=== PATIENT | male | born 1985 | race Caucasian/White ===

== ENCOUNTER 2017-06-05 12:02 | Inpatient (IN) | payer SELFPAY ==
[2017-06-05 12:54] VITALS: BMI 18.8
[2017-06-05] MEDS ORDERED: MENTHOL/PHENOL 1 EACH UD MM PRN (17:24)
[2017-06-05] MEDS ORDERED: hydrOXYzine PAMOATE 50 MG CAPSULE (FP) PO PRN (17:24)
[2017-06-05] MEDS ORDERED: LOPERAMIDE HCL 2 MG CAPSULE PO PRN (17:24)
[2017-06-05] MEDS ORDERED: diazePAM 5 MG TABLET PO PRN (17:24)
[2017-06-05] MEDS ORDERED: P-EPHED 60MG/TRIPROLIDI 2.5MG TABLET PO PRN (17:24)
[2017-06-05] MEDS ORDERED: NICOTINE POLACRILEX 4 MG GUM BC PRN (17:24)
[2017-06-05] MEDS ORDERED: MAGNESIUM HYDROX 2400MG/30ML ORAL SUSPENSION 30 ML CUP PO PRN (17:24)
[2017-06-05] MEDS ORDERED: MAG HYDROX/AL HYDROX/SIMETH 30 ML UNIT-DOSE CUP PO PRN (17:24)
[2017-06-05] MEDS ORDERED: ACETAMINOPHEN 325 MG TABLET (FP) PO PRN (17:24)
[2017-06-05] MEDS ORDERED: guaiFENesin/D-METHORPHAN HB 10 ML UNIT-DOSE CUPS PO PRN (17:24)
[2017-06-05] MEDS ORDERED: MAGNESIUM CITRATE 300 ML BOTTLE PO PRN (17:24)
[2017-06-05] MEDS ORDERED: IBUPROFEN 400 MG TABLET (FP) PO PRN (17:24)
--- NOTE | 2017-06-05 17:36 | HP ---
COWS - Scale Resting Pulse: 1= [place] 81-100 Sweatin= Chills/Flushing Restless Observation: 3= Extraneous Movement Pupil Size: 0= Normal to Room Light Bone or Joint Aches: 4=Acute Joint/Muscle Pain Runny Nose/ Eye Tearin= Nasal Congestion GI Upset > 30mins: 1= Stomach Cramp Tremor Observation: 1= Tremor [place], Not Seen Yawning Observation: 1= 1-2x During Session Anxiety or Irritability: 1=Feels Anxious/Irritable Goose Flesh Skin: 0=Smooth Skin COWS Score: 14 CIWA Score - CIWA Score Nausea/Vomitin-No Nausea/No Vomiting Muscle Tremors: 3 Anxiety: 4-Mod. Anxious/Guarded Agitation: 3 Paroxysmal Sweats: No Perspiration Orientation: 0-Oriented Tacttile Disturbances: 3-Moderate Itch/Numb/Burn Auditory Disturbances: 0-None Visual Disturbances: 0-None Headache: 0-None Present CIWA-Ar Total Score: 13 Admission ROS S - HPI Chief Complaint: WITHDRAWAL SX FROM HEROIN AND XANAX Allergies/Adverse Reactions: Allergies Allergy/AdvReac Type Severity Reaction Status Date / Time No Known Allergies Allergy Verified 06/05/17 14:12 History of Present Illness: 31 Y/O MALE WITH A HX OF HEROIN AND XANAX DEPENDENCE SEEKING DETOX [place]. Exam Limitations: No Limitations - Ebola screening Have you traveled outside of the country in the last 21 days: No Have you had contact with anyone from an Ebola affected area: No Have you been sick,other than usual withdrawal symptoms: No Do you have a fever: No - Review of Systems Constitutional: Chills, Loss of Appetite, Night Sweats, Changes in sleep, Unintentional Wgt. Loss EENT: reports: Blurred Vision (WEARS GLASSES), Tearing, Nose Congestion, Dental Problems (CROWNS PUT IN ON FRONTAL TEETH) Respiratory: reports: No Symptoms reported Cardiac: reports: No Symptoms Reported GI: reports: Poor Appetite, Poor Fluid Intake : reports: No Symptoms Reported Musculoskeletal: reports: Back Pain, Joint Pain, Muscle Pain Integumentary: reports: Bruising (IVD INJECTION SITES) Neuro: reports: Other (BLACKOUTS DUE TO XANAX USE) Endocrine: reports: No Symptoms Reported Hematology: reports: No Symptoms Reported Psychiatric: reports: Orientated x3 Other Systems: Reviewed and Negative Patient History - Patient Medical History Hx Anemia: No Hx Asthma: No Hx Chronic Obstructive Pulmonary Disease (COPD): No Hx Cancer: No Hx Cardiac Disorders: No Hx Congestive Heart Failure: No Hx Hypertension: No Hx Hypercholesterolemia: No Hx Pacemaker: No HX Cerebrovascular Accident: No Hx Seizures: No Hx Dementia: No Hx Diabetes: No Hx Gastrointestinal Disorders: No Hx Liver Disease: No Hx Genitourinary Disorders: No Hx Sexually Transmitted Disorders: No Hx Renal Disease (ESRD): No Hx Thyroid Disease: No Hx Human Immunodeficiency Virus (HIV): No (NEGATIVE HX;LAST 06/09) Hx Hepatitis C: No Hx Depression: No Hx Suicide Attempt: No (DENIES PAST/ CURRENT S/H/I TODAY) Hx Bipolar Disorder: No Hx Schizophrenia: No - Patient Surgical History Past Surgical History: Yes Hx Neurologic Surgery: No Hx Cataract Extraction: No Hx Cardiac Surgery: No Hx Lung Surgery: No Hx Breast Surgery: No Hx Breast Biopsy: No Hx Abdominal Surgery: Yes (CONGENITAL RIGHT HERNIA-SX AT ) Hx Appendectomy: No Hx Cholecystectomy: No Hx Genitourinary Surgery: No Hx Section: No Hx Orthopedic Surgery: No Anesthesia Reaction: No - PPD History Previous Implant?: Yes Documented Results: Negative w/proof Implanted On Prior R Admission?: Yes Date: 10/29/15 - Reproductive History Patient is a Female of Child Bearing Age (11 -55 yrs old): No (MALE) - Smoking Cessation Smoking history: Current every day smoker Have you smoked in the past 12 months: Yes Aproximately how many cigarettes per day: 20 Hx Chewing Tobacco Use: No Initiated information on smoking cessation: Yes 'Breaking Loose' booklet given: 06/05/17 - Substance & Tx. History Hx Alcohol Use: No (DENIES) Hx Substance Use: Yes (HEROIN/XANAX) Substance Use Type: Cocaine, Heroin, Tranquilizers (8 MG TWICE WEEKLY, LAST USED 06/04/17 AND STATES IT'S A PROBLEM FOR HIM.) Hx Substance Use Treatment: Yes (LAST TX AT [facility]) - Substances Abused GHB Route: Injection Frequency: Daily Amount used: 6 bags Age of first use: 27 Date of Last Use: 06/05/17 Cocaine Route: Injection Frequency: 1-3 times last 30 days Amount used: 1/2 gram Age of first use: 20 Date of Last Use: 06/04/17 Alprazolam (Xanax) Route: Oral Frequency: 1-3 times last 30 days Amount used: 8mg Age of first use: 20 Date of Last Use: 05/25/17 Heroin Route: Injection Frequency: Daily Amount used: 6 BAGS Age of first use: 27 Date of Last Use: 06/05/17 Family Disease History - Family Disease History Family Disease History: Respiratory: Mother (emphysema,ALCOHOL) Admission Physical Exam [facility] - Vital Signs Vital Signs: Vital Signs - 24 hr 06/05/17 12:37 Temperature 97.1 F L Pulse Rate 92 H Respiratory 18 Rate Blood Pressure 119/64 - Physical General Appearance: Yes: Moderate Distress, Irritable, Anxious HEENTM: Yes: EOMI, Normocephalic, BETTY, Pharynx Normal, Other (ENLARGED TONSILS. NO EXUDATE) Respiratory: Yes: Chest Non-Tender, Lungs Clear, Normal Breath Sounds Neck: Yes: No masses,lesions,Nodules, Supple, Trachea in good position Breast: Yes: Breast Exam Deferred Cardiology: Yes: Regular Rhythm, Regular Rate, S1, S2 Abdominal: Yes: Normal Bowel Sounds, Non Tender, Flat, Soft Genitourinary: Yes: Other (N/C) Back: Yes: Within Normal Limits Musculoskeletal: Yes: full range of Motion, Gait Steady Extremities: Yes: Normal Range of Motion, Non-Tender Neurological: Yes: special inspector II-XII NML intact, Fully Oriented, Alert, Motor Strength 5/5 Integumentary: Yes: Dry, Warm Lymphatic: Yes: Within Normal Limits - Diagnostic (1) Nicotine dependence Current Visit: Yes Status: Acute Qualifiers: Nicotine product type: cigarettes Substance use status: uncomplicated Qualified Code(s): F17.210 - Nicotine dependence, cigarettes, uncomplicated (2) Opioid dependence with withdrawal Current Visit: Yes Status: Acute (3) Track yuen due to intravenous drug abuse Current Visit: Yes Status: Acute (4) Uncomplicated sedative, hypnotic or anxiolytic withdrawal Current Visit: Yes Status: Acute (5) Weight loss Current Visit: Yes Status: Acute Cleared for Admission [facility] - Detox or Rehab [facility] Level of Care: Medically Managed Detox Regimen/Protocol: Methadone/Valium [facility] Breath Alcohol Content Breath Alcohol Content: 0 Urine Drug Screen - Results Drug Screen Negative: No Urine Drug Screen Results: SUJATHA-Cocaine, OPI-Opiates, BZO-Benzodiazepines, MTD- Methadone, TCA-Tricyclic Antidepress, OXY-Oxycodone
[2017-06-05] MEDS ORDERED: diazePAM 5 MG TABLET PO ONE (18:00)
[2017-06-05] MEDS ORDERED: METHADONE HCL 10 MG TABLET (FOR DETOX USE ONLY) PO ONE ×2 (18:30→23:00)
[2017-06-05] MEDS: NICOTINE 21 MG/24 HOURS TOPICAL PATCH TD SCH (19:11)
[2017-06-05] MEDS: diazePAM 5 MG TABLET PO SCH (22:20)
[2017-06-05] MEDS: THIAMINE HCL 100 MG TABLET (FP) PO SCH (22:20)
[2017-06-05 23:05] LABS: URINE APPEARANCE CLEAR; URINE BILIRUBIN NEGATIVE (NEGATIVE); URINE BLOOD NEGATIVE (NEGATIVE); URINE COLOR YELLOW; URINE GLUCOSE (UA) NEGATIVE (NEGATIVE); URINE KETONE NEGATIVE (NEGATIVE); URINE LEUK ESTERASE NEGATIVE (NEGATIVE); URINE NITRITE NEGATIVE (NEGATIVE); URINE PROTEIN NEGATIVE (NEGATIVE); URINE UROBILINOGEN NEGATIVE mg/dL (0.2-1.0)
[2017-06-06] MEDS: diazePAM 5 MG TABLET PO SCH ×3 (05:36→22:21)
--- NOTE | 2017-06-06 09:49 | CONSULT ---
[facility] Psychiatric Consult - Data Date of interview: 06/06/17 Admission source: [facility] Identifying data: Pt. is a 31 year old male, single, without kids, unemployed, and living at home with parents. This is one of multiple admissions for patient. Pt. admitted for opiate, benzodiazepine, and cocaine dependence. Substance Abuse History: Following information confirmed with Mr. Sampson: Smoking Cessation. Smoking history: Current every day smoker. Have you smoked in the past 12 months: Yes. Aproximately how many cigarettes per day: 20. Hx Chewing Tobacco Use: No. Initiated information on smoking cessation: Yes. ' Breaking Loose' booklet given: 06/05/17. - Substance & Tx. History. Hx Alcohol Use: No (DENIES). Hx Substance Use: Yes (HEROIN/XANAX). Substance Use Type: Cocaine, Heroin, Tranquilizers (8 MG TWICE WEEKLY, LAST USED 06/04/17 AND STATES IT'S A PROBLEM FOR HIM.). Hx Substance Use Treatment: Yes (LAST TX AT [facility]). - Substances Abused. GHB. Route: Injection. Frequency: Daily. Amount used: 6 bags. Age of first use: 27. Date of Last Use: 06/05/17. Cocaine. Route: Injection. Frequency: 1-3 times last 30 days. Amount used: 1/ 2 gram. Age of first use: 20. Date of Last Use: 06/04/17. Alprazolam ( Xanax). Route: Oral. Frequency: 1-3 times last 30 days. Amount used: 8mg. Age of first use: 20. Date of Last Use: 05/25/17. Heroin. Route: Injection. Frequency: Daily. Amount used: 6 BAGS. Age of first use: 27. Date of Last Use: 06/05/17 Medical History: Denies. Psychiatric History: Pt. denies h/o psychiatric hospitalization, outpatient care , and suicide attempts. Pt. c/o insomnia. Physical/Sexual Abuse/Trauma History: Denies. Mental Status Exam - Mental Status Exam Alert and Oriented to: Time, Place, Person Cognitive Function: Good Patient Appearance: Unkempt Mood: Euthymic Affect: Mood Congruent Patient Behavior: Appropriate, Cooperative Speech Pattern: Appropriate Voice Loudness: Normal Thought Process: Goal Oriented Hallucinations: Denies Suicidal Ideation: Denies Homicidal Ideation: Denies Insight/Judgement: Poor Sleep: Poorly Appetite: Fair Muscle strength/Tone: Normal Gait/Station: Normal Psychiatric Findings - Problem List ([place] 1, 2,3) (1) Nicotine dependence Current Visit: Yes Status: Acute Qualifiers: Nicotine product type: cigarettes Substance use status: uncomplicated Qualified Code(s): F17.210 - Nicotine dependence, cigarettes, uncomplicated (2) Opioid dependence with withdrawal Current Visit: Yes Status: Acute (3) Uncomplicated sedative, hypnotic or anxiolytic withdrawal Current Visit: Yes Status: Acute (4) Insomnia Current Visit: Yes Status: Acute - Initial Treatment Plan Initial Treatment Plan: Psychoeducation provided. Detoxification provided. Ambien 10mg qhs prn ordered. Benefits and side effects (sleep walking) discussed. Verbal consent given. Will continue to monitor.
[2017-06-06 09:58] LABS: HEMATOCRIT 42.8 % (35.4-49); HEMOGLOBIN 14.2 GM/dL (11.7-16.9); MCH 28.3 pg (25.7-33.7); MCHC 33.1 g/dl (32.0-35.9); MEAN CELL VOLUME 85.5 fl (80-96); MEAN PLT VOLUME 8.2 fl (7.5-11.1); PLATELET COUNT 320 K/MM3 (134-434); RDW 14.5 % (11.9-15.9); WHITE BLOOD COUNT 8.8 K/mm3 (4.0-10.0)
[2017-06-06] MEDS ORDERED: PRENATAL VITAMINS W/ FOLIC ACID TABLET (FP) PO SCH (10:00)
[2017-06-06] MEDS ORDERED: METHADONE HCL 10 MG TABLET (FOR DETOX USE ONLY) PO SCH (10:00)
--- NOTE | 2017-06-06 10:05 | PN ---
S CIWA - CIWA Score Nausea/Vomitin-Mild Nausea/No Vomiting Muscle Tremors: 4-Moderate,w/Arms Extend Anxiety: 3 Agitation: 3 Paroxysmal Sweats: 1-Minimal Palms Moist Orientation: 0-Oriented Tacttile Disturbances: 0-None Auditory Disturbances: 0-None Visual Disturbances: 0-None Headache: 0-None Present CIWA-Ar Total Score: 12 BHS COWS - Scale Resting Pulse: 0= [place] 80 or Below Sweatin= Chills/Flushing Restless Observation: 3= Extraneous Movement Pupil Size: 0= Normal to Room Light Bone or Joint Aches: 2= Severe Diffuse Aches Runny Nose/ Eye Tearin= Runny Nose/Eyes GI Upset > 30mins: 1= Stomach Cramp Tremor Observation of Outstretched Hands: 2= Slight Tremor Visible Yawning Observation: 0= None Anxiety or Irritability: 2=Irritable/Anxious Goose Flesh Skin: 0=Smooth Skin COWS Score: 13 S Progress Note (SOAP) Subjective: sweat tremor anxiety restlessness patient had breakfast and requested to resting little longer before community meeting Objective: 06/06/17 10:14 Vital Signs Temperature 97.7 F 06/06/17 06:23 Pulse Rate 73 06/06/17 06:23 Respiratory Rate 16 06/06/17 06:23 Blood Pressure 115/79 06/06/17 06:23 O2 Sat by Pulse Oximetry (%) Laboratory Last Values WBC 8.8 K/mm3 (4.0-10.0) 06/06/17 05:45 RBC 5.00 M/mm3 (4.00-5.60) 06/06/17 05:45 Hgb 14.2 GM/dL (11.7-16.9) 06/06/17 05:45 Hct 42.8 % (35.4-49) 06/06/17 05:45 MCV 85.5 fl (80-96) 06/06/17 05:45 MCH 28.3 pg (25.7-33.7) 06/06/17 05:45 MCHC 33.1 g/dl (32.0-35.9) 06/06/17 05:45 RDW 14.5 % (11.9-15.9) 06/06/17 05:45 Plt Count 320 K/MM3 (134-434) D 02/13/18 05:45 MPV 8.2 fl (7.5-11.1) 06/06/17 05:45 Urine Color Yellow 06/05/17 22:50 Urine Appearance Clear 06/05/17 22:50 Urine pH 7.0 (5.0-8.0) 06/05/17 22:50 Ur Specific [place] 1.016 (1.001-1.035) 06/05/17 22:50 Urine Protein Negative (NEGATIVE) 06/05/17 22:50 Urine Glucose (UA) Negative (NEGATIVE) 06/05/17 22:50 Urine Ketones Negative (NEGATIVE) 06/05/17 22:50 Urine Blood Negative (NEGATIVE) 06/05/17 22:50 Urine Nitrite Negative (NEGATIVE) 06/05/17 22:50 Urine Bilirubin Negative (NEGATIVE) 06/05/17 22:50 Urine Urobilinogen Negative mg/dL (0.2-1.0) 06/05/17 22:50 Ur Leukocyte Esterase Negative (NEGATIVE) 06/05/17 22:50 lab noted Assessment: 06/06/17 10:14 withdrawal sx Plan: continue detox
[2017-06-06 10:27] LABS: ALBUMIN 3.8 g/dl (3.4-5.0); BLOOD UREA NITROGEN 9 mg/dL (7-18); CALCIUM 8.9 mg/dL (8.5-10.1); CO2 30 mmol/L (21-32); GLUCOSE,RANDOM 123 mg/dL (74-106)
[2017-06-06 10:29] LABS: ALK PHOS 85 U/L (45-117); ANION GAP 8 (8-16); BILIRUBIN,TOTAL 0.3 mg/dL (0.2-1.0); CHLORIDE 105 mmol/L (98-107); POTASSIUM 4.4 mmol/L (3.5-5.1); SGOT/AST 12 U/L (15-37); SGPT/ALT 26 U/L (12-78); SODIUM 143 mmol/L (136-145); TOT PROT 7.1 g/dl (6.4-8.2)
[2017-06-06] MEDS: NICOTINE 21 MG/24 HOURS TOPICAL PATCH TD SCH ×2 (10:32→11:10)
--- NOTE | 2017-06-06 13:59 | EKG ---
Test Reason : Blood Pressure : / mmHG Vent. Rate : 067 BPM Atrial Rate : 067 BPM P-R Int : 156 ms QRS Dur : 084 ms QT Int : 412 ms P-R-T Axes : 055 046 057 degrees QTc Int : 435 ms NORMAL SINUS RHYTHM NORMAL ECG NO PREVIOUS ECGS AVAILABLE Confirmed by MD Samm, Jean ([id number]) on 06/06/2017 1:59:08 PM Referred By: Confirmed By:Jean Quijano MD
[2017-06-06] MEDS ORDERED: ZOLPIDEM TARTRATE 10 MG TABLET (PARK CARE ONLY) PO PRN (22:00)
[2017-06-06] MEDS: THIAMINE HCL 100 MG TABLET (FP) PO SCH (22:21)
[2017-06-07 07:13] VITALS: BP 129/61; PULSE 52; TEMP 95.2
[2017-06-07] MEDS ORDERED: METHADONE HCL 5 MG TABLET (FOR DETOX USE ONLY) PO SCH (10:00)
[2017-06-07] MEDS ORDERED: diazePAM 5 MG TABLET PO SCH (10:00)
--- NOTE | 2017-06-07 12:20 | DS ---
[facility] Detox Discharge Summary Admission Date: 06/05/17 Discharge Date: 06/07/17 - History Present History: Opioid Dependence, Sedative Dependence Pertinent Past History: patient reports that detox is not for him, he is not ready not to continue using patient insists to leave the detox unit "I can not do this" knowledge based health teaching on addiction and consequences of IV heroin discuss harm reduction needle exchange program and the blood born infection mechanism - Physical Exam Results Vital Signs: Vital Signs Temperature 95.2 F L 06/07/17 04:00 Pulse Rate 52 L 06/07/17 04:00 Respiratory Rate 19 06/07/17 04:00 Blood Pressure 129/61 06/07/17 04:00 O2 Sat by Pulse Oximetry (%) Pertinent Admission Physical Exam Findings: withdrawal sx Vital Signs Temperature 95.2 F L 06/07/17 04:00 Pulse Rate 52 L 06/07/17 04:00 Respiratory Rate 19 06/07/17 04:00 Blood Pressure 129/61 06/07/17 04:00 O2 Sat by Pulse Oximetry (%) Laboratory Last Values WBC 8.8 K/mm3 (4.0-10.0) 06/06/17 05:45 RBC 5.00 M/mm3 (4.00-5.60) 06/06/17 05:45 Hgb 14.2 GM/dL (11.7-16.9) 06/06/17 05:45 Hct 42.8 % (35.4-49) 06/06/17 05:45 MCV 85.5 fl (80-96) 06/06/17 05:45 MCH 28.3 pg (25.7-33.7) 06/06/17 05:45 MCHC 33.1 g/dl (32.0-35.9) 06/06/17 05:45 RDW 14.5 % (11.9-15.9) 06/06/17 05:45 Plt Count 320 K/MM3 (134-434) D 06/06/17 05:45 MPV 8.2 fl (7.5-11.1) 06/06/17 05:45 Sodium 143 mmol/L (136-145) 06/06/17 05:45 Potassium 4.4 mmol/L (3.5-5.1) 06/06/17 05:45 Chloride 105 mmol/L (98-107) 06/06/17 05:45 Carbon Dioxide 30 mmol/L (21-32) 06/06/17 05:45 Anion Gap 8 (8-16) 06/06/17 05:45 BUN 9 mg/dL (7-18) 06/06/17 05:45 Creatinine 1.0 mg/dL (0.7-1.3) D 06/06/17 05:45 Creat Clearance w eGFR > 60 (>60) 06/06/17 05:45 Random Glucose 123 mg/dL (74-106) H D 06/06/17 05:45 Calcium 8.9 mg/dL (8.5-10.1) 06/06/17 05:45 Total Bilirubin 0.3 mg/dL (0.2-1.0) D 06/06/17 05:45 AST 12 U/L (15-37) L 06/06/17 05:45 ALT 26 U/L (12-78) D 06/06/17 05:45 Alkaline Phosphatase 85 U/L (45-117) 06/06/17 05:45 Total Protein 7.1 g/dl (6.4-8.2) 06/06/17 05:45 Albumin 3.8 g/dl (3.4-5.0) 06/06/17 05:45 Urine Color Yellow 06/05/17 22:50 Urine Appearance Clear 06/05/17 22:50 Urine pH 7.0 (5.0-8.0) 06/05/17 22:50 Ur Specific [place] 1.016 (1.001-1.035) 06/05/17 22:50 Urine Protein Negative (NEGATIVE) 06/05/17 22:50 Urine Glucose (UA) Negative (NEGATIVE) 06/05/17 22:50 Urine Ketones Negative (NEGATIVE) 06/05/17 22:50 Urine Blood Negative (NEGATIVE) 06/05/17 22:50 Urine Nitrite Negative (NEGATIVE) 06/05/17 22:50 Urine Bilirubin Negative (NEGATIVE) 06/05/17 22:50 Urine Urobilinogen Negative mg/dL (0.2-1.0) 06/05/17 22:50 Ur Leukocyte Esterase Negative (NEGATIVE) 06/05/17 22:50 RPR Titer Nonreactive (NONREACTIVE) 06/06/17 05:45 HIV 1&2 Antibody Screen Negative 06/05/17 05:45 HIV P24 Antigen Negative 06/05/17 05:45 lab noted - Treatment Hospital Course: Detox Protocol Followed, Responded well - Medication Discharge Medications: Ambulatory Orders NK [No Known Home Medication] 06/15/14 - Diagnosis (1) Nicotine dependence Status: Acute Qualifiers: Nicotine product type: cigarettes Substance use status: uncomplicated Qualified Code(s): F17.210 - Nicotine dependence, cigarettes, uncomplicated (2) Opioid dependence with withdrawal Status: Acute (3) Uncomplicated sedative, hypnotic or anxiolytic withdrawal Status: Acute - AMA Did Patient Leave Against Medical Advice: Yes
[2017-06-09] MEDS ORDERED: METHADONE HCL 10 MG TABLET (FOR DETOX USE ONLY) PO SCH (10:00)
[2017-06-09] MEDS ORDERED: diazePAM 5 MG TABLET PO SCH (10:00)
[2017-06-10] MEDS ORDERED: METHADONE HCL 5 MG TABLET (FOR DETOX USE ONLY) PO SCH (06:00)
== END 2017-06-07 09:50 | disposition left against medical advice (07) | DRG 770 ==
LOC: YASAS 12:02 → Y6N 15:48
PROVIDERS: ADMIT Internal Medicine; ATTEND Internal Medicine
PROC: HZ2ZZZZ Detoxification Services for Substance Abuse Treatment (ICD-10-PCS; principal; 2017-06-05)
DX: F11.23 Opioid dependence with withdrawal (principal); F13.230 Sedative, hypnotic or anxiolytic dependence with withdrawal, uncomplicated; F17.210 Nicotine dependence, cigarettes, uncomplicated; F19.10 Other psychoactive substance abuse, uncomplicated; G47.00 Insomnia, unspecified; R63.4 Abnormal weight loss; Z68.1 Body mass index [BMI] 19.9 or less, adult
CPT/HCPCS: 36415; 80053; 81003; 85027; 86593; 87389; 93005; 93010

== ENCOUNTER 2017-07-04 08:27 | Inpatient (IN) | payer OTHER ==
[2017-07-04 10:23] VITALS: BMI 18.8
--- NOTE | 2017-07-04 11:38 | HP ---
[facility] Rehab Assess/Revision - Admission History Admitted to Rehab from: [facility] Date of Admission to Rehab: 07/04/2012 - Vital signs Vital Signs: Vital Signs Period Temp Pulse Resp BP Sys/Webster Pulse Ox Last 24 Hr 97.6 F 94 20 116/71 - Findings Detox History & Physical reviewed: Yes Concur with findings: Yes Comments/Additional Findings: elsa reports having been recently at [facility] after relapse, d[facility]c 06/30 [facility] and xanax at this time. Inpatient Rehab Admission - Initial Determination Are CD services needed?: Yes Free of communicable disease: Yes Not in need of hospitalization: Yes - Rehab Admission Criteria Previous failed treatment: Yes Patient is meeting Inpatient Rehab admission criteria:: Yes
[2017-07-04] MEDS ORDERED: guaiFENesin/D-METHORPHAN HB 10 ML UNIT-DOSE CUPS PO PRN (11:40)
[2017-07-04] MEDS ORDERED: MENTHOL/PHENOL 1 EACH UD MM PRN (11:40)
[2017-07-04] MEDS ORDERED: MAGNESIUM HYDROX 2400MG/30ML ORAL SUSPENSION 30 ML CUP PO PRN (11:40)
[2017-07-04] MEDS ORDERED: LOPERAMIDE HCL 2 MG CAPSULE PO PRN (11:40)
[2017-07-04] MEDS ORDERED: IBUPROFEN 400 MG TABLET (FP) PO PRN (11:40)
[2017-07-04] MEDS ORDERED: NICOTINE POLACRILEX 4 MG GUM BUC PRN (11:40)
[2017-07-04] MEDS ORDERED: P-EPHED 60MG/TRIPROLIDI 2.5MG TABLET PO PRN (11:40)
[2017-07-04] MEDS ORDERED: ACETAMINOPHEN 325 MG TABLET (FP) PO PRN (11:40)
[2017-07-04] MEDS ORDERED: MAG HYDROX/AL HYDROX/SIMETH 30 ML UNIT-DOSE CUP PO PRN (11:40)
[2017-07-04] MEDS ORDERED: hydrOXYzine PAMOATE 50 MG CAPSULE (FP) PO PRN (11:40)
[2017-07-04] MEDS ORDERED: MAGNESIUM CITRATE 300 ML BOTTLE PO PRN (11:40)
[2017-07-04] MEDS: NICOTINE 21 MG/24 HOURS TOPICAL PATCH TD SCH (15:25)
[2017-07-04 19:57] LABS: ALBUMIN 3.9 g/dl (3.4-5.0); ALK PHOS 101 U/L (45-117); ANION GAP 11 (8-16); BILIRUBIN,TOTAL 0.2 mg/dL (0.2-1.0); BLOOD UREA NITROGEN 13 mg/dL (7-18); CALCIUM 8.4 mg/dL (8.5-10.1); CHLORIDE 102 mmol/L (98-107); CO2 27 mmol/L (21-32); CREATININE 0.9 mg/dL (0.7-1.3); GLUCOSE,RANDOM 93 mg/dL (74-106); POTASSIUM 3.8 mmol/L (3.5-5.1); SGOT/AST 12 U/L (15-37); SGPT/ALT 18 U/L (12-78); SODIUM 140 mmol/L (136-145)
[2017-07-04 20:02] LABS: HEMATOCRIT 41.5 % (35.4-49); HEMOGLOBIN 14.3 GM/dL (11.7-16.9); MCH 29.8 pg (25.7-33.7); MCHC 34.4 g/dl (32.0-35.9); MEAN CELL VOLUME 86.5 fl (80-96); MEAN PLT VOLUME 8.8 fl (7.5-11.1); PLATELET COUNT 218 K/MM3 (134-434); RDW 14.5 % (11.9-15.9)
[2017-07-04 20:07] LABS: URINE APPEARANCE CLOUDY; URINE BILIRUBIN NEGATIVE (NEGATIVE); URINE BLOOD NEGATIVE (NEGATIVE); URINE COLOR AMBER; URINE GLUCOSE (UA) NEGATIVE (NEGATIVE); URINE KETONE NEGATIVE (NEGATIVE); URINE LEUK ESTERASE NEGATIVE (NEGATIVE); URINE NITRITE NEGATIVE (NEGATIVE); URINE UROBILINOGEN NEGATIVE mg/dL (0.2-1.0)
[2017-07-04 20:20] LABS: URINE PROTEIN 1+ (NEGATIVE)
[2017-07-04 20:26] LABS: EPI CELLS RARE /HPF (FEW); GRANULAR CASTS 44 /lpf; URINE BACTERIA FEW /hpf (NONE SEEN); YEAST MANY
[2017-07-04] MEDS: THIAMINE HCL 100 MG TABLET (FP) PO SCH (21:42)
[2017-07-04] MEDS ORDERED: SUVOREXANT 10 MG TABLET PO PRN (22:00)
--- NOTE | 2017-07-05 09:56 | HP ---
Psychiatrist Admission - Data Date of interview: 07/05/17 Admission source: [facility] Identifying data: Pt. is a 31 year old [place] male, engaged, without kids, employed at [employer] in [place], and lives with luan. This is patient's first admission to rehab at [facility]. Pt. has multiple admissions to detox. Pt. admitted to rehab for benzodiazepine and heroin dependence. Medical History: Denies. Psychiatric History: Pt. denies h/o psychiatric hospitalizations, outpatient treatment, and suicide attempt. Physical/Sexual Abuse/Trauma History: Denies. Vital Signs: Vital Signs - 24 hr 07/04/17 07/04/17 07/05/17 10:21 16:07 00:30 Temperature 97.6 F 98.5 F Pulse Rate 94 H 84 Respiratory 20 18 16 Rate Blood Pressure 116/71 115/65 07/05/17 07/05/17 03:30 06:59 Temperature 97.8 F Pulse Rate 80 Respiratory 16 17 Rate Blood Pressure 125/78 Allergies/Adverse Reactions: Allergies Allergy/AdvReac Type Severity Reaction Status Date / Time shellfish derived Allergy Severe Swelling Verified 07/04/17 15:03 Date of last physical exam: 07/04/17 Concur with the findings of this exam: Yes - Substance Abuse/Tx History Hx Alcohol Use: No Hx Substance Use: Yes (Heroin- 1 bundle per day. Xanax- 1-2 times per week (12- 24 mg per week)) Substance Use Type: Cocaine, Tranquilizers Hx Substance Use Treatment: No (First inpatient rehab. Pt. has been to detox at [facility]) Mental Status Exam - Mental Status Exam Alert and Oriented to: Time, Place, Person Cognitive Function: Good Patient Appearance: Well Groomed Mood: Hopeful Affect: Appropriate Patient Behavior: Appropriate, Cooperative Speech Pattern: Clear, Appropriate Voice Loudness: Normal Thought Process: Goal Oriented Thought Disorder: Not Present Hallucinations: Denies Suicidal Ideation: Denies Homicidal Ideation: Denies Insight/Judgement: Poor Sleep: Poorly Appetite: Fair Muscle strength/Tone: Normal Gait/Station: Normal Psychiatric Findings - Problem List ([place] 1, 2,3) (1) Benzodiazepine dependence Current Visit: Yes Status: Acute (2) Opioid dependence Current Visit: Yes Status: Acute (3) Insomnia Current Visit: Yes Status: Acute - Initial Treatment Plan Initial Treatment Plan: Psychoeducation provided. Rehab in progress. Observation. Will continue current medications.
[2017-07-05] MEDS: NICOTINE 21 MG/24 HOURS TOPICAL PATCH TD SCH (10:04)
[2017-07-05] MEDS: PRENATAL VITAMINS W/ FOLIC ACID TABLET (FP) PO SCH (10:05)
--- NOTE | 2017-07-05 10:47 | EKG ---
Test Reason : Blood Pressure : / mmHG Vent. Rate : 088 BPM Atrial Rate : 088 BPM P-R Int : 144 ms QRS Dur : 082 ms QT Int : 364 ms P-R-T Axes : 051 031 063 degrees QTc Int : 440 ms NORMAL SINUS RHYTHM NONSPECIFIC T WAVE ABNORMALITY ABNORMAL ECG WHEN COMPARED WITH ECG OF 13-JUN-2017 16:36, NO SIGNIFICANT CHANGE WAS FOUND Confirmed by BILLY AHMADI, BREANN ([id number]) on 07/05/2017 10:46:54 AM Referred By: Confirmed By:BREANN CERVANTES MD
[2017-07-05] MEDS: THIAMINE HCL 100 MG TABLET (FP) PO SCH (21:18)
[2017-07-06 06:58] VITALS: BP 125/77; PULSE 63; TEMP 97.6
[2017-07-06] MEDS: PRENATAL VITAMINS W/ FOLIC ACID TABLET (FP) PO SCH (10:26)
[2017-07-06] MEDS: NICOTINE 21 MG/24 HOURS TOPICAL PATCH TD SCH (10:26)
== END 2017-07-06 13:30 | disposition left against medical advice (07) | DRG 770 ==
LOC: YASAS 08:27 → Y5N 12:13
PROVIDERS: ADMIT Psychiatry & Neurology Psychiatry; ATTEND Psychiatry & Neurology Psychiatry
PROC: HZ42ZZZ Group Counseling for Substance Abuse Treatment, Cognitive-Behavioral (ICD-10-PCS; principal; 2017-07-04)
DX: F11.20 Opioid dependence, uncomplicated (principal); F13.20 Sedative, hypnotic or anxiolytic dependence, uncomplicated; F17.210 Nicotine dependence, cigarettes, uncomplicated; F19.24 Other psychoactive substance dependence with psychoactive substance-induced mood disorder; G47.00 Insomnia, unspecified
CPT/HCPCS: 36415; 80053; 81003; 81015; 85027; 86593; 93005; 93010

== ENCOUNTER 2019-12-28 14:30 | Inpatient (IN) | payer OTHER ==
--- NOTE | 2019-12-28 18:12 | BHS.RME ---
Substance Use & Tx History - Substance Use History Heroin Substance amount: 10 bags Frequency of use: Daily Substance route: Injection (ex: intravenous or skin popping) Date of Last Use: 12/28/19 Xanax Substance amount: 4-8 mg Frequency of use: Daily Substance route: Oral Date of Last Use: 12/27/19 - Last Treatment Date of last treatment: 06/13/17 Where was last treatment: Detox Physical/Psych/Mental Status - Behavior General Behavior: Increased activity (restlessness, agitation) Eye Contact: Normal Other Behaviors: Mannerisms - Cooperativeness Cooperativeness: Cooperative - Thinking Thought Processes: Tight, Logical, Goal Directed Thought content: Future oriented - Physical Health Problems Is patient presently having any pain?: Yes Does patient presently have any injuries (include location): No Does patient currently have a fever: No COWS - Scale Resting Pulse: 0= [place] 80 or Below Sweatin=Flushed/Facial Moisture Restless Observation: 1= Difficult to Sit Still Pupil Size: 1= Pupils >than Normal Bone or Joint Aches: 2= Severe Diffuse Aches Runny Nose/ Eye Tearin= Runny Nose/Eyes GI Upset > 30mins: 1= Stomach Cramp Tremor Observation: 1= Tremor [place], Not Seen Yawning Observation: 1= 1-2x During Session Anxiety or Irritability: 2=Irritable/Anxious Goose Flesh Skin: 3=Piloerection COWS Score: 16 CIWA Nausea/Vomitin Muscle Tremors: 2 Anxiety: 2 Agitation: 2 Paroxysmal Sweats: 2 Orientation: 0-Oriented Tacttile Disturbances: 0-None Auditory Disturbances: 1-Very Mild Visual Disturbances: 0-None Headache: 2-Mild CIWA-Ar Total Score: 13
--- NOTE | 2019-12-28 18:17 | HP ---
COWS - Scale Resting Pulse: 0= [place] 80 or Below Sweatin=Flushed/Facial Moisture Restless Observation: 1= Difficult to Sit Still Pupil Size: 1= Pupils >than Normal Bone or Joint Aches: 2= Severe Diffuse Aches Runny Nose/ Eye Tearin= Runny Nose/Eyes GI Upset > 30mins: 1= Stomach Cramp Tremor Observation: 1= Tremor [place], Not Seen Yawning Observation: 1= 1-2x During Session Anxiety or Irritability: 2=Irritable/Anxious Goose Flesh Skin: 3=Piloerection COWS Score: 16 CIWA Score Nausea/Vomitin Muscle Tremors: 2 Anxiety: 2 Agitation: 2 Paroxysmal Sweats: 2 Orientation: 0-Oriented Tacttile Disturbances: 0-None Auditory Disturbances: 1-Very Mild Visual Disturbances: 0-None Headache: 2-Mild CIWA-Ar Total Score: 13 - Admission Criteria [facility]ASAS Guidelines: Admission for Medically Managed Detox: Requires at least one of the followin. CIWA greater than 12 2. Seizures within the past 24 hours 3. Delirium tremens within the past 24 hours 4. Hallucinations within the past 24 hours 5. Acute intervention needed for co occurring medical disorder 6. Acute intervention needed for co occurring psychiatric disorder 7. Severe withdrawal that cannot be handled at a lower level of care (continued vomiting, continued diarrhea, abnormal vital signs) requiring intravenous medication and/or fluids 8. Patient presents the following: CIWA greater than 12 Admission Criteria Met: Admission criteria met Admitting History and Physical - Smoking History Smoking history: Current every day smoker Have you smoked in the past 12 months: Yes Aproximately how many cigarettes per day: 20 - Alcohol/Substance Use Hx Alcohol Use: No Admission ROS S - HPI Chief Complaint: I need detox Allergies/Adverse Reactions: Allergies Allergy/AdvReac Type Severity Reaction Status Date / Time shellfish derived Allergy Severe Swelling Verified 07/04/17 15:03 History of Present Illness: 34 year old man with heroin and xanax use presents for detox. His last treatment was in 2018, he went on methadone maintenance after that until June of 2019 when he relapsed and stopped the program. He denies overdose or seizures. Exam Limitations: No Limitations - Ebola screening Have you traveled outside of the country in the last 21 days: No Have you had contact with anyone from an Ebola affected area: No Have you been sick,other than usual withdrawal symptoms: No Do you have a fever: No - Review of Systems Constitutional: Chills, Loss of Appetite, Changes in sleep, Weight Stable EENT: reports: Tearing, Nose Congestion Respiratory: reports: No Symptoms reported Cardiac: reports: No Symptoms Reported GI: reports: Nausea, Poor Appetite, Vomiting, Abdominal cramping : reports: No Symptoms Reported Musculoskeletal: reports: Back Pain, Joint Pain, Muscle Pain, Muscle Weakness Integumentary: reports: Flushing, Sweating Neuro: reports: Tremors, Weakness Endocrine: reports: No Symptoms Reported Hematology: reports: No Symptoms Reported Psychiatric: reports: Anxious Other Systems: Reviewed and Negative Patient History - Patient Medical History Hx Anemia: No Hx Asthma: No Hx Chronic Obstructive Pulmonary Disease (COPD): No Hx Cancer: No Hx Cardiac Disorders: No Hx Congestive Heart Failure: No Hx Hypertension: No Hx Hypercholesterolemia: No Hx Pacemaker: No HX Cerebrovascular Accident: No Hx Seizures: No Hx Dementia: No Hx Diabetes: No Hx Gastrointestinal Disorders: No Hx Liver Disease: No Hx Genitourinary Disorders: No Hx Sexually Transmitted Disorders: No Hx Renal Disease (ESRD): No Hx Thyroid Disease: No Hx Human Immunodeficiency Virus (HIV): No Hx Hepatitis C: No Hx Depression: No Hx Suicide Attempt: No Hx Bipolar Disorder: No Hx Schizophrenia: No Other Medical History: Anxiety - Patient Surgical History Past Surgical History: Yes Hx Neurologic Surgery: No Hx Cataract Extraction: No Hx Cardiac Surgery: No Hx Lung Surgery: No Hx Breast Surgery: No Hx Breast Biopsy: No Hx Abdominal Surgery: No Hx Appendectomy: No Hx Cholecystectomy: No Hx Genitourinary Surgery: No Hx Section: No Hx Orthopedic Surgery: No Other Surgical History: congenital right inguinal hernia repair as an Anesthesia Reaction: No - PPD History Previous Implant?: Yes Documented Results: Negative w/proof Implanted On Prior [facility] Admission?: Yes Date: 06/15/17 Results: 0 mm PPD to be Administered?: Yes - Smoking Cessation Smoking history: Current every day smoker Have you smoked in the past 12 months: Yes Aproximately how many cigarettes per day: 20 Hx Chewing Tobacco Use: No Initiated information on smoking cessation: Yes 'Breaking Loose' booklet given: 12/28/19 Admission Physical Exam BHS - Physical General Appearance: Yes: No Apparent Distress HEENTM: Yes: Hearing grossly Normal, Normocephalic, Normal Voice Respiratory: Yes: Chest Non-Tender, Lungs Clear, Normal Breath Sounds, No Respiratory Distress, No Accessory Muscle Use Neck: Yes: No masses,lesions,Nodules, Supple Breast: Yes: Breast Exam Deferred Cardiology: Yes: Regular Rhythm, Regular Rate, S1, S2 Abdominal: Yes: Normal Bowel Sounds, Non Tender, Soft Genitourinary: Yes: Within Normal Limits Back: Yes: Normal Inspection Musculoskeletal: Yes: Muscle Pain Extremities: Yes: Tremors Neurological: Yes: Fully Oriented, Alert, Normal Mood/Affect, Normal Response Integumentary: Yes: Clammy, Track Warner (both arms) Lymphatic: Yes: Within Normal Limits - Diagnostic (1) Nicotine dependence Current Visit: Yes Status: Acute Qualifiers: Nicotine product type: cigarettes Substance use status: uncomplicated Qualified Code(s): F17.210 - Nicotine dependence, cigarettes, uncomplicated (2) Opioid dependence with withdrawal Current Visit: Yes Status: Acute (3) Uncomplicated sedative, hypnotic or anxiolytic withdrawal Current Visit: Yes Status: Acute Cleared for Admission [facility] - Detox or Rehab [facility] Level of Care: Medically Managed Detox Regimen/Protocol: Methadone/Valium Claeared for Rehab Admission: No Breathalyzer - Breathalyzer Breathalyzer: 0 Urine Drug Screen - Test Device Lot number: [id number] Expiration date: 07/30/21 - Control Is test valid?: Yes - Results Drug screen NEGATIVE: No Urine drug screen results: FEN-Fentanyl, MOP-Opiates, BZO-Benzodiazepines Inpatient Rehab Admission - Rehab Decision to Admit Inpatient rehab admission?: No
[2019-12-28] MEDS ORDERED: MAGNESIUM HYDROX 2400MG/30ML ORAL SUSPENSION 30 ML CUP PO PRN (18:18)
[2019-12-28] MEDS ORDERED: METHADONE HCL 10 MG TABLET (FOR DETOX USE ONLY) PO ONE (18:18)
[2019-12-28] MEDS ORDERED: BISMUTH SUBSALICYLATE 524 MG/30 ML UD PO PRN (18:18)
[2019-12-28] MEDS ORDERED: diazePAM 5 MG TABLET PO PRN (18:18)
[2019-12-28] MEDS ORDERED: MAG HYDROX/AL HYDROX/SIMETH 30 ML UNIT-DOSE CUP PO PRN (18:18)
[2019-12-28] MEDS ORDERED: MAGNESIUM CITRATE 300 ML BOTTLE PO PRN (18:18)
[2019-12-28] MEDS ORDERED: NICOTINE POLACRILEX 2 MG GUM BUC PRN (18:18)
[2019-12-28] MEDS ORDERED: ACETAMINOPHEN 325 MG TABLET (FP) PO PRN ×2 (18:18)
[2019-12-28] MEDS ORDERED: cloNIDine HCL 0.1 MG TABLET PO PRN (18:18)
[2019-12-28] MEDS ORDERED: MENTHOL/PHENOL 1 EACH UD MM PRN (18:18)
[2019-12-28] MEDS ORDERED: IBUPROFEN 400 MG TABLET (FP) PO PRN (18:18)
[2019-12-28] MEDS: diazePAM 5 MG TABLET PO SCH (22:58)
[2019-12-28] MEDS: THIAMINE HCL 100 MG TABLET (FP) PO SCH (22:58)
[2019-12-28] MEDS: MELATONIN 5 MG TABLETS PO SCH (22:58)
[2019-12-29] MEDS: diazePAM 5 MG TABLET PO SCH ×3 (05:25→22:45)
[2019-12-29] MEDS ORDERED: METHADONE HCL 10 MG TABLET (FOR DETOX USE ONLY) ONE (08:58)
[2019-12-29] MEDS ORDERED: METHADONE HCL 5 MG TABLET (FOR DETOX USE ONLY) ONE (08:59)
[2019-12-29] MEDS ORDERED: METHADONE (DETOX) 20 MG, METHADONE (DETOX) 5 MG PO ONE (10:00)
[2019-12-29] MEDS: NICOTINE 7 MG/24 HOURS TOPICAL PATCH TD SCH (10:35)
[2019-12-29] MEDS: PRENATAL VITAMINS W/ FOLIC ACID TABLET (FP) PO SCH (10:35)
[2019-12-29] MEDS: METHOCARBAMOL 500 MG TABLET PO PRN ×2 (10:36→22:46)
--- NOTE | 2019-12-29 10:52 | PN ---
S CIWA - CIWA Score Nausea/Vomitin-Mild Nausea/No Vomiting Muscle Tremors: 3 Anxiety: 2 Agitation: 1-Slight > Activity Paroxysmal Sweats: No Perspiration Orientation: 0-Oriented Tacttile Disturbances: 1-Very Mild Itch/Numbness Auditory Disturbances: 0-None Visual Disturbances: 2-Mild Sensitivity Headache: 2-Mild CIWA-Ar Total Score: 12 BHS COWS - Scale Resting Pulse: 0= [place] 80 or Below Sweatin= Chills/Flushing Restless Observation: 0= Sits Still Pupil Size: 1= Pupils >than Normal Bone or Joint Aches: 1= Mild Discomfort Runny Nose/ Eye Tearin= None GI Upset > 30mins: 2= Nausea/Diarrhea Tremor Observation of Outstretched Hands: 2= Slight Tremor Visible Yawning Observation: 0= None Anxiety or Irritability: 2=Irritable/Anxious Goose Flesh Skin: 3=Piloerection COWS Score: 12 S Progress Note (SOAP) Subjective: 34 years old male was admitted on 12/28/19 for benzo and opiate withdrawal sx management treating with valium and methadone detox regiments mbi 20.0 ensure 120 ml po tid with meals feels tired resting in bed prefers to sleep today limited conversation with staff Objective: 12/29/19 10:51 Vital Signs - 24 hr 12/28/19 12/28/19 12/28/19 18:44 19:21 20:57 Temperature 97.7 F 97.7 F 98.0 F Pulse Rate 67 58 L 68 Respiratory 18 18 16 Rate Blood Pressure 112/71 104/66 108/65 O2 Sat by Pulse 100 97 Oximetry (%) 12/29/19 12/29/19 06:16 09:08 Temperature 96.9 F L 98.0 F Pulse Rate 89 64 Respiratory 18 18 Rate Blood Pressure 111/73 99/68 O2 Sat by Pulse 96 Oximetry (%) 12/29/19 10:51 lab pending Assessment: 12/29/19 10:51 benzo and opiate withdrawal Plan: valium and methadone regiments
[2019-12-29 11:12] LABS: ALBUMIN 3.2 g/dl (3.4-5.0); BILIRUBIN,TOTAL 0.4 mg/dL (0.2-1); BLOOD UREA NITROGEN 9.1 mg/dL (7-18); CALCIUM 8.9 mg/dL (8.5-10.1); CREATININE 0.7 mg/dL (0.55-1.3); POTASSIUM 3.9 mmol/L (3.5-5.1); TOT PROT 6.8 g/dl (6.4-8.2)
[2019-12-29 11:41] LABS: HEMATOCRIT 41.4 % (35.4-49); HEMOGLOBIN 13.9 GM/dL (11.7-16.9); MCHC 33.4 g/dl (32.0-35.9); MEAN CELL VOLUME 83.8 fl (80-96); MEAN PLT VOLUME 8.1 fl (7.5-11.1); PLATELET COUNT 253 K/MM3 (134-434); RBC 4.94 M/mm3 (4.00-5.60); RDW 14.1 % (11.9-15.9); WHITE BLOOD COUNT 5.9 K/mm3 (4.0-10.0)
--- NOTE | 2019-12-29 12:46 | EKG ---
Test Reason : Blood Pressure : / mmHG Vent. Rate : 053 BPM Atrial Rate : 053 BPM P-R Int : 158 ms QRS Dur : 080 ms QT Int : 442 ms P-R-T Axes : 036 047 032 degrees QTc Int : 414 ms SINUS BRADYCARDIA WITH MARKED SINUS ARRHYTHMIA OTHERWISE NORMAL ECG WHEN COMPARED WITH ECG OF 04-JUL-2017 22:23, VENT. RATE HAS DECREASED BY 35 BPM T WAVE INVERSION NOW EVIDENT IN ANTERIOR LEADS NONSPECIFIC T WAVE ABNORMALITY NO LONGER EVIDENT IN LATERAL LEADS Confirmed by Akin Ely ([id number]) on 12/29/2019 12:46:00 PM Referred By: Confirmed By:Akin Ely
[2019-12-29] MEDS: MELATONIN 5 MG TABLETS PO SCH (22:46)
[2019-12-29] MEDS: THIAMINE HCL 100 MG TABLET (FP) PO SCH (22:46)
[2019-12-30] MEDS ORDERED: diazePAM 5 MG TABLET PO SCH (06:00)
[2019-12-30 09:54] VITALS: BP 112/67; PULSE 44; TEMP 98.2
[2019-12-30] MEDS ORDERED: METHADONE HCL 10 MG TABLET (FOR DETOX USE ONLY) PO ONE (10:00)
[2019-12-30] MEDS: NICOTINE 7 MG/24 HOURS TOPICAL PATCH TD SCH (10:12)
[2019-12-30] MEDS: PRENATAL VITAMINS W/ FOLIC ACID TABLET (FP) PO SCH (10:12)
--- NOTE | 2019-12-30 10:36 | CONSULT ---
[facility] Psychiatric Consult - Data Date of interview: 12/30/19 Admission source: [facility] Identifying data: Patient is a 34 year old single male, without children, unemployed, and currently receiving financial assistance. This is one of multiple admissions for patient. Patient admitted to for opiate dependence. Substance Abuse History: Smoking Cessation. Smoking history: Current every day smoker. Have you smoked in the past 12 months: Yes. Aproximately how many cigarettes per day: 20. Hx Chewing Tobacco Use: No. Initiated information on smoking cessation: Yes. 'Breaking Loose' booklet given: 12/28/19. 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 At present patient reports difficulty sleeping. Physical/Sexual Abuse/Trauma History: denies. Mental Status Exam - Mental Status Exam Alert and Oriented to: Time, Place, Person Cognitive Function: Good Patient Appearance: Well Groomed Mood: Withdrawn Affect: Mood Congruent Patient Behavior: Fatigued, Cooperative Speech Pattern: Appropriate Voice Loudness: Normal Thought Process: Goal Oriented Thought Disorder: Not Present Hallucinations: Denies Suicidal Ideation: Denies Homicidal Ideation: Denies Insight/Judgement: Poor Sleep: Poorly Appetite: Fair Muscle strength/Tone: Normal Gait/Station: Normal Psychiatric Findings - Problem List ([place] 1, 2,3) (1) Substance-induced sleep disorder Current Visit: Yes Status: Acute (2) Opioid dependence with withdrawal Current Visit: Yes Status: Acute (3) Nicotine dependence Current Visit: Yes Status: Chronic Qualifiers: Nicotine product type: cigarettes Substance use status: uncomplicated Qualified Code(s): F17.210 - Nicotine dependence, cigarettes, uncomplicated - Initial Treatment Plan Initial Treatment Plan: Psychoeducation provided. Detoxification in progress. Will order Belsorma 10mg HS PRN. Benefits and side effects discussed. Verbal consent given.
--- NOTE | 2019-12-30 13:29 | DS ---
[facility] Detox Discharge Summary Admission Date: 12/28/19 Discharge Date: 12/30/19 - History Present History: Opioid Dependence, Sedative Dependence Additional Comments: 34 years old male was admitted on 12/28/19 for benzo and opiate withdrawal sx management treated with valium and methadone detox regiment mr carrillo insists to leave the detox unit to go home seen by psychiatrist no medical intervention mr is alert oriented x 3 General Appearance: Yes: No Apparent Distress HEENTM: Yes: Hearing grossly Normal, Normocephalic, Normal Voice Respiratory: Yes: Chest Non-Tender, Lungs Clear, Normal Breath Sounds, No Respiratory Distress, No Accessory Muscle Use Neck: Yes: No masses,lesions,Nodules, Supple Breast: Yes: Breast Exam Deferred Cardiology: Yes: Regular Rhythm, Regular Rate, S1, S2 Abdominal: Yes: Normal Bowel Sounds, Non Tender, Soft Genitourinary: Yes: Within Normal Limits Back: Yes: Normal Inspection Musculoskeletal: Yes: Muscle Pain Extremities: Yes: Tremors Neurological: Yes: Fully Oriented, Alert, Normal Mood/Affect, Normal Response Integumentary: Yes: Clammy, Track Warner (both arms) Lymphatic: Yes: Within Normal Limits Pertinent Past History: time for discharge 52 minutes treatment team met with mr carrillo to discuss the benefits of valium and m ethadone regiments mr carrillo prefers to go home to his and father who are supportive mr carrillo to stay in detox treatment mr carrillo states that he is not ready for addiction treatment rather focus on good-well "do use drug" encourage mr carrillo seeking medication assisted treatment program mr carrillo has narcan at home - Physical Exam Results Vital Signs: Vital Signs Temperature 98.2 F 12/30/19 08:53 Pulse Rate 44 L 12/30/19 08:53 Respiratory Rate 18 12/30/19 08:53 Blood Pressure 112/67 12/30/19 08:53 O2 Sat by Pulse Oximetry (%) 99 12/30/19 06:45 Pertinent Admission Physical Exam Findings: benzo and opiate withdrawal Laboratory Tests 12/28/19 12/29/19 12/29/19 18:48 07:20 07:20 WBC RBC Hgb Hct MCV MCH MCHC RDW Plt Count MPV Sodium Potassium Chloride Carbon Dioxide Anion Gap BUN Creatinine Est GFR (CKD-EPI)AfAm Est GFR (CKD-EPI)NonAf Random Glucose Calcium Total Bilirubin AST ALT Alkaline Phosphatase Total Protein Albumin Syphilis Serology Non-reactive COVID-19 (NELLY) Not detected HIV Ag/Ab Combo Qual Negative 12/29/19 12/29/19 07:20 07:30 WBC 5.9 RBC 4.94 Hgb 13.9 Hct 41.4 MCV 83.8 MCH 28.0 MCHC 33.4 RDW 14.1 Plt Count 253 MPV 8.1 Sodium 140 Potassium 3.9 Chloride 104 Carbon Dioxide 28 Anion Gap 7 L BUN 9.1 Creatinine 0.7 Est GFR (CKD-EPI)AfAm 144.72 Est GFR (CKD-EPI)NonAf 124.87 Random Glucose 101 Calcium 8.9 Total Bilirubin 0.4 AST 15 ALT 24 Alkaline Phosphatase 75 Total Protein 6.8 Albumin 3.2 L Syphilis Serology COVID-19 (NELLY) HIV Ag/Ab Combo Qual lab noted - Treatment Hospital Course: Detox Protocol Followed, Responded well Patient has Accepted a Rehab Referral to: community support meetings and groups - Medication Discharge Medications: Ambulatory Orders NK [No Known Home Medication] 06/15/14 - Diagnosis (1) Opioid dependence with withdrawal Current Visit: Yes Status: Acute (2) Uncomplicated sedative, hypnotic or anxiolytic withdrawal Current Visit: Yes Status: Acute (3) Nicotine dependence Current Visit: Yes Status: Acute Qualifiers: Nicotine product type: cigarettes Substance use status: in withdrawal Qualified Code(s): F17.213 - Nicotine dependence, cigarettes, with withdrawal (4) Substance induced mood disorder Current Visit: Yes Status: Suspected (5) Weight loss Current Visit: Yes Status: Chronic - AMA Did Patient Leave Against Medical Advice: Yes CIWA Score - CIWA Score Nausea/Vomitin-Mild Nausea/No Vomiting Muscle Tremors: 3 Anxiety: 2 Agitation: 1-Slight > Activity Paroxysmal Sweats: No Perspiration Orientation: 0-Oriented Tacttile Disturbances: 0-None Auditory Disturbances: 0-None Visual Disturbances: 1-Very Mild Sensitivity Headache: 2-Mild CIWA-Ar Total Score: 10 COWS (PN) - Opiate Withdrawal Resting Pulse: 0= [place] 80 or Below Sweatin= Chills/Flushing Restless Observation: 0= Sits Still Pupil Size: 1= Pupils >than Normal Bone or Joint Aches: 1= Mild Discomfort Runny Nose/ Eye Tearin= Nasal Congestion GI Upset > 30mins: 2= Nausea/Diarrhea Tremor Observation of Outstretched Hands: 2= Slight Tremor Visible Yawning Observation: 1= 1-2x During Session Anxiety or Irritability: 2=Irritable/Anxious Goose Flesh Skin: 0=Smooth Skin COWS Score: 11
[2019-12-30] MEDS ORDERED: SUVOREXANT 10 MG TABLET PO PRN (22:00)
[2019-12-31] MEDS ORDERED: diazePAM 5 MG TABLET PO ONE (06:00)
[2019-12-31] MEDS ORDERED: METHADONE (DETOX) 10 MG, METHADONE (DETOX) 5 MG PO ONE (10:00)
[2020-01-01] MEDS ORDERED: METHADONE HCL 10 MG TABLET (FOR DETOX USE ONLY) PO ONE (10:00)
[2020-01-02] MEDS ORDERED: METHADONE HCL 5 MG TABLET (FOR DETOX USE ONLY) PO ONE (06:00)
== END 2019-12-30 11:36 | disposition left against medical advice (07) | DRG 770 ==
LOC: YASAS 14:30 → Y3N 18:44
PROVIDERS: ADMIT Allergy & Immunology; ATTEND Allergy & Immunology
PROC: HZ2ZZZZ Detoxification Services for Substance Abuse Treatment (ICD-10-PCS; principal; 2019-12-28)
DX: F11.23 Opioid dependence with withdrawal (principal); F13.230 Sedative, hypnotic or anxiolytic dependence with withdrawal, uncomplicated; F17.210 Nicotine dependence, cigarettes, uncomplicated; F19.282 Other psychoactive substance dependence with psychoactive substance-induced sleep disorder; F19.24 Other psychoactive substance dependence with psychoactive substance-induced mood disorder; R63.4 Abnormal weight loss; Z68.20 Body mass index [BMI] 20.0-20.9, adult; Z91.013 Allergy to seafood
CPT/HCPCS: 36415; 80053; 85027; 86780; 87389; 93005; 93010; U0003

== ENCOUNTER 2021-12-02 08:33 | Inpatient (IN) | payer OTHER ==
[2021-12-02 09:30] VITALS: BMI 18.0
[2021-12-02] MEDS ORDERED: cloNIDine HCL 0.1 MG TABLET PO PRN (10:17)
[2021-12-02] MEDS ORDERED: NICOTINE 10 MG CARTRIDGE (INHALER) IH PRN (10:17)
[2021-12-02] MEDS ORDERED: methaDONE HCL 10 MG TABLET (FOR DETOX USE ONLY) PO ONE (10:17)
[2021-12-02] MEDS ORDERED: MAGNESIUM HYDROX 2400MG/30ML ORAL SUSPENSION 30 ML CUP PO PRN (10:17)
[2021-12-02] MEDS ORDERED: LOPERAMIDE HCL 2 MG CAPSULE PO PRN (10:17)
[2021-12-02] MEDS ORDERED: MAGNESIUM CITRATE 300 ML BOTTLE PO PRN (10:17)
[2021-12-02] MEDS ORDERED: BENZOCAINE/MENTHOL (CHLORASEPTIC ) LOZENGE MM PRN (10:17)
[2021-12-02] MEDS ORDERED: DICYCLOMINE HCL 10 MG CAPSULE PO PRN (10:17)
[2021-12-02] MEDS ORDERED: MAG HYDROX/AL HYDROX/SIMETH 30 ML UNIT-DOSE CUP PO PRN (10:17)
[2021-12-02] MEDS ORDERED: ONDANSETRON *ODT* 4 MG TABLET SL PRN (10:17)
[2021-12-02] MEDS ORDERED: IBUPROFEN 600 MG TABLET (FP) PO PRN (10:17)
[2021-12-02] MEDS ORDERED: IBUPROFEN 400 MG TABLET (FP) PO PRN (10:17)
[2021-12-02] MEDS ORDERED: BISMUTH SUBSALICYLATE 262 MG/15 ML BTL PO PRN (10:17)
[2021-12-02] MEDS ORDERED: METHOCARBAMOL 500 MG TABLET PO PRN (10:17)
[2021-12-02] MEDS ORDERED: ACETAMINOPHEN 325 MG TABLET (FP) PO PRN ×2 (10:17)
[2021-12-02] MEDS ORDERED: methaDONE HCL 10 MG TABLET (FOR DETOX USE ONLY) ONE (13:32)
[2021-12-02] MEDS: PRENATAL VITAMINS W/ FOLIC ACID TABLET (FP) PO SCH (13:36)
[2021-12-02] MEDS: hydrOXYzine PAMOATE 25 MG CAPSULE (FP) PO SCH ×3 (14:48→22:36)
[2021-12-02 16:32] LABS: HEMATOCRIT 41.7 % (35.4-49); HEMOGLOBIN 14.2 GM/dL (11.7-16.9); MCH 27.7 pg (25.7-33.7); MCHC 34.1 g/dl (32.0-35.9); MEAN PLT VOLUME 7.6 fl (7.5-11.1); PLATELET COUNT 257 10^3/uL (134-434); RBC 5.15 M/mm3 (4.00-5.60); RDW 14.3 % (11.9-15.9); WHITE BLOOD COUNT 5.9 K/mm3 (4.0-10.0)
[2021-12-02 16:36] LABS: CALCIUM 9.8 mg/dL (8.5-10.1)
[2021-12-02 16:38] LABS: BLOOD UREA NITROGEN 16.1 mg/dL (7-18)
[2021-12-02 16:41] LABS: BILIRUBIN,TOTAL 0.4 mg/dL (0.2-1); TOT PROT 8.1 g/dl (6.4-8.2)
[2021-12-02] MEDS ORDERED: THIAMINE HCL 100 MG TABLET (FP) PO SCH (22:00)
[2021-12-02] MEDS ORDERED: MELATONIN 5 MG TABLETS PO SCH (22:00)
[2021-12-03] MEDS: hydrOXYzine PAMOATE 25 MG CAPSULE (FP) PO SCH (05:53)
[2021-12-03] MEDS ORDERED: hydrOXYzine PAMOATE 50 MG CAPSULE (FP) PO PRN (09:17)
[2021-12-03 10:00] VITALS: RESP 17
[2021-12-03] MEDS: PRENATAL VITAMINS W/ FOLIC ACID TABLET (FP) PO SCH (10:29)
[2021-12-03 13:48] VITALS: BP 104/58; PULSE 51; TEMP 96.9
[2021-12-03] MEDS ORDERED: SUVOREXANT 10 MG TABLET PO PRN (22:00)
[2021-12-04] MEDS ORDERED: methaDONE HCL 10 MG TABLET (FOR DETOX USE ONLY) PO ONE (10:00)
[2021-12-06] MEDS ORDERED: methaDONE HCL 10 MG TABLET (FOR DETOX USE ONLY) PO ONE (10:00)
== END 2021-12-03 14:01 | disposition left against medical advice (07) | DRG 770 ==
LOC: SUATTDRO 08:33 → YASAS 08:33 → Y6N 13:58
PROVIDERS: ADMIT Allergy & Immunology; ATTEND Surgery
PROC: HZ2ZZZZ Detoxification Services for Substance Abuse Treatment (ICD-10-PCS; principal; 2021-12-02)
DX: F10.230 Alcohol dependence with withdrawal, uncomplicated (principal); F14.20 Cocaine dependence, uncomplicated; F13.20 Sedative, hypnotic or anxiolytic dependence, uncomplicated; F12.20 Cannabis dependence, uncomplicated; F17.210 Nicotine dependence, cigarettes, uncomplicated; F19.282 Other psychoactive substance dependence with psychoactive substance-induced sleep disorder; F19.280 Other psychoactive substance dependence with psychoactive substance-induced anxiety disorder; F19.24 Other psychoactive substance dependence with psychoactive substance-induced mood disorder
CPT/HCPCS: 36415; 80053; 85027; 86780; C9803-CS; U0003; U0005

== ENCOUNTER 2021-12-12 15:22 | Inpatient (IN) | payer OTHER ==
[2021-12-12 16:31] VITALS: BMI 18.0
[2021-12-12] MEDS ORDERED: ACETAMINOPHEN 325 MG TABLET (FP) PO PRN (17:08)
[2021-12-12] MEDS ORDERED: LOPERAMIDE HCL 2 MG CAPSULE PO PRN (17:08)
[2021-12-12] MEDS ORDERED: MAGNESIUM HYDROX 2400MG/30ML ORAL SUSPENSION 30 ML CUP PO PRN (17:08)
[2021-12-12] MEDS ORDERED: IBUPROFEN 400 MG TABLET (FP) PO PRN (17:08)
[2021-12-12] MEDS ORDERED: BISMUTH SUBSALICYLATE 524 MG/30 ML PO PRN (17:08)
[2021-12-12] MEDS ORDERED: cloNIDine HCL 0.1 MG TABLET PO PRN (17:08)
[2021-12-12] MEDS ORDERED: NICOTINE 10 MG CARTRIDGE (INHALER) IH PRN (17:08)
[2021-12-12] MEDS ORDERED: MAGNESIUM CITRATE 300 ML BOTTLE PO PRN (17:08)
[2021-12-12] MEDS ORDERED: BENZOCAINE/MENTHOL (CHLORASEPTIC ) LOZENGE MM PRN (17:08)
[2021-12-12] MEDS ORDERED: NALOXONE HCL 0.4 MG/ML VIAL IM PRN (17:08)
[2021-12-12] MEDS ORDERED: diazePAM 5 MG TABLET PO PRN (17:08)
[2021-12-12] MEDS ORDERED: DICYCLOMINE HCL 10 MG CAPSULE PO PRN (17:08)
[2021-12-12] MEDS ORDERED: MAG HYDROX/AL HYDROX/SIMETH 30 ML UNIT-DOSE CUP PO PRN (17:08)
[2021-12-12] MEDS ORDERED: methaDONE HCL 10 MG TABLET (FOR DETOX USE ONLY) PO ONE (18:00)
[2021-12-12] MEDS ORDERED: methaDONE HCL 10 MG TABLET (FOR DETOX USE ONLY) ONE (18:08)
[2021-12-12] MEDS: IBUPROFEN 600 MG TABLET (FP) PO PRN (18:45)
[2021-12-12] MEDS: METHOCARBAMOL 500 MG TABLET PO PRN (18:47)
[2021-12-12] MEDS ORDERED: MELATONIN 5 MG TABLETS PO SCH (22:00)
[2021-12-12] MEDS: diazePAM 5 MG TABLET PO SCH (22:04)
[2021-12-12] MEDS: THIAMINE HCL 100 MG TABLET (FP) PO SCH (22:04)
[2021-12-13] MEDS: IBUPROFEN 600 MG TABLET (FP) PO PRN ×3 (03:59→22:06)
[2021-12-13] MEDS: diazePAM 5 MG TABLET PO SCH ×4 (06:36→22:07)
[2021-12-13] MEDS ORDERED: NICOTINE 7 MG/24 HOURS TOPICAL PATCH TD SCH (10:00)
[2021-12-13] MEDS ORDERED: PNEUMOC 20-VAL CONJ-DIP CRM/PF 0.5 ML SYRINGE IM ONE (10:00)
[2021-12-13] MEDS ORDERED: PRENATAL VITAMINS W/ FOLIC ACID TABLET (FP) PO SCH (10:00)
[2021-12-13] MEDS: ACETAMINOPHEN 325 MG TABLET (FP) PO PRN (11:17)
[2021-12-13 12:02] LABS: HEMATOCRIT 40.4 % (35.4-49); HEMOGLOBIN 13.4 GM/dL (11.7-16.9); MCH 27.5 pg (25.7-33.7); MCHC 33.1 g/dl (32.0-35.9); MEAN CELL VOLUME 82.9 fl (80-96); MEAN PLT VOLUME 8.3 fl (7.5-11.1); PLATELET COUNT 194 10^3/uL (134-434); RBC 4.87 M/mm3 (4.00-5.60); RDW 14.7 % (11.9-15.9); WHITE BLOOD COUNT 5.3 K/mm3 (4.0-10.0)
[2021-12-13 12:08] LABS: ALBUMIN 3.4 g/dl (3.4-5.0)
[2021-12-13 12:11] LABS: CREATININE 0.8 mg/dL (0.55-1.3)
[2021-12-13 12:12] LABS: BILIRUBIN,TOTAL 0.5 mg/dL (0.2-1); TOT PROT 6.4 g/dl (6.4-8.2)
[2021-12-13 13:11] LABS: HIV INTERPRETATION NEGATIVE (NEGATIVE)
[2021-12-13] MEDS: hydrOXYzine PAMOATE 50 MG CAPSULE (FP) PO PRN ×3 (15:51→22:07)
[2021-12-13] MEDS: METHOCARBAMOL 500 MG TABLET PO PRN (17:12)
[2021-12-13] MEDS ORDERED: SUVOREXANT 10 MG TABLET PO PRN (22:00)
[2021-12-13] MEDS: THIAMINE HCL 100 MG TABLET (FP) PO SCH (22:07)
[2021-12-14] MEDS: METHOCARBAMOL 500 MG TABLET PO PRN (02:14)
[2021-12-14] MEDS: ACETAMINOPHEN 325 MG TABLET (FP) PO PRN (02:14)
[2021-12-14] MEDS: hydrOXYzine PAMOATE 50 MG CAPSULE (FP) PO PRN (05:00)
[2021-12-14] MEDS ORDERED: diazePAM 5 MG TABLET PO SCH (06:00)
[2021-12-14 06:39] VITALS: BP 112/84; PULSE 53; RESP 16; TEMP 97.3
[2021-12-14] MEDS ORDERED: methaDONE HCL 10 MG TABLET (FOR DETOX USE ONLY) PO ONE (10:00)
[2021-12-15] MEDS ORDERED: diazePAM 5 MG TABLET PO SCH (06:00)
[2021-12-16] MEDS ORDERED: diazePAM 5 MG TABLET PO ONE (06:00)
[2021-12-16] MEDS ORDERED: methaDONE HCL 10 MG TABLET (FOR DETOX USE ONLY) PO ONE (10:00)
== END 2021-12-14 07:46 | disposition left against medical advice (07) | DRG 770 ==
LOC: YASAS 15:22 → Y6N 18:14
PROVIDERS: ADMIT Allergy & Immunology; ATTEND Surgery
PROC: HZ2ZZZZ Detoxification Services for Substance Abuse Treatment (ICD-10-PCS; principal; 2021-12-12)
DX: F11.23 Opioid dependence with withdrawal (principal); F13.230 Sedative, hypnotic or anxiolytic dependence with withdrawal, uncomplicated; F14.20 Cocaine dependence, uncomplicated; F12.20 Cannabis dependence, uncomplicated; F17.213 Nicotine dependence, cigarettes, with withdrawal; F19.280 Other psychoactive substance dependence with psychoactive substance-induced anxiety disorder; F19.282 Other psychoactive substance dependence with psychoactive substance-induced sleep disorder; R63.4 Abnormal weight loss; Z68.1 Body mass index [BMI] 19.9 or less, adult; Z91.013 Allergy to seafood
CPT/HCPCS: 36415; 80053; 85027; 86780; 87389; 87811; C9803-CS; U0003; U0005

== ENCOUNTER 2022-01-11 12:56 | Inpatient (IN) | payer OTHER ==
[2022-01-11 15:33] VITALS: BMI 19.7
[2022-01-11] MEDS ORDERED: BISMUTH SUBSALICYLATE 524 MG/30 ML PO PRN (17:36)
[2022-01-11] MEDS ORDERED: NALOXONE HCL (KLOXXADO) 8 MG SPRAY NS PRN (17:36)
[2022-01-11] MEDS ORDERED: MAGNESIUM HYDROX 2400MG/30ML ORAL SUSPENSION 30 ML CUP PO PRN (17:36)
[2022-01-11] MEDS ORDERED: MAG HYDROX/AL HYDROX/SIMETH 30 ML UNIT-DOSE CUP PO PRN (17:36)
[2022-01-11] MEDS ORDERED: IBUPROFEN 400 MG TABLET (FP) PO PRN (17:36)
[2022-01-11] MEDS ORDERED: NICOTINE 10 MG CARTRIDGE (INHALER) IH PRN (17:36)
[2022-01-11] MEDS ORDERED: ACETAMINOPHEN 325 MG TABLET (FP) PO PRN ×2 (17:36)
[2022-01-11] MEDS ORDERED: BENZOCAINE/MENTHOL (CHLORASEPTIC ) LOZENGE MM PRN (17:36)
[2022-01-11] MEDS ORDERED: LOPERAMIDE HCL 2 MG CAPSULE PO PRN (17:36)
[2022-01-11] MEDS ORDERED: DICYCLOMINE HCL 10 MG CAPSULE PO PRN (17:36)
[2022-01-11] MEDS ORDERED: cloNIDine HCL 0.1 MG TABLET PO PRN (17:36)
[2022-01-11] MEDS ORDERED: MAGNESIUM CITRATE 300 ML BOTTLE PO PRN (17:36)
[2022-01-11] MEDS ORDERED: ONDANSETRON *ODT* 4 MG TABLET SL PRN (17:36)
[2022-01-11] MEDS ORDERED: methaDONE HCL 10 MG TABLET (FOR DETOX USE ONLY) PO ONE (18:30)
[2022-01-11] MEDS: diazePAM 5 MG TABLET PO PRN (19:01)
[2022-01-11] MEDS: PRENATAL VITAMINS W/ FOLIC ACID TABLET (FP) PO SCH (19:03)
[2022-01-11] MEDS: hydrOXYzine PAMOATE 25 MG CAPSULE (FP) PO SCH ×2 (19:03→22:39)
[2022-01-11] MEDS: MELATONIN 5 MG TABLETS PO SCH (22:39)
[2022-01-11] MEDS: THIAMINE HCL 100 MG TABLET (FP) PO SCH (22:40)
[2022-01-12] MEDS: hydrOXYzine PAMOATE 25 MG CAPSULE (FP) PO SCH ×5 (05:59→22:09)
[2022-01-12] MEDS: IBUPROFEN 600 MG TABLET (FP) PO PRN ×2 (06:35→15:02)
[2022-01-12] MEDS: diazePAM 5 MG TABLET PO PRN ×4 (06:35→22:09)
[2022-01-12] MEDS: PRENATAL VITAMINS W/ FOLIC ACID TABLET (FP) PO SCH (10:04)
[2022-01-12] MEDS: METHOCARBAMOL 500 MG TABLET PO PRN ×2 (10:06→16:36)
[2022-01-12 12:53] LABS: HEMOGLOBIN 14.7 GM/dL (11.7-16.9); MCH 28.1 pg (25.7-33.7); MCHC 34.1 g/dl (32.0-35.9); MEAN CELL VOLUME 82.5 fl (80-96); MEAN PLT VOLUME 7.4 fl (7.5-11.1); PLATELET COUNT 217 10^3/uL (134-434); RBC 5.22 M/mm3 (4.00-5.60); RDW 14.2 % (11.9-15.9); WHITE BLOOD COUNT 4.5 K/mm3 (4.0-10.0)
[2022-01-12 13:03] LABS: CALCIUM 9.6 mg/dL (8.5-10.1)
[2022-01-12 13:04] LABS: ALBUMIN 3.5 g/dl (3.4-5.0); BLOOD UREA NITROGEN 8.7 mg/dL (7-18)
[2022-01-12 13:06] LABS: CREATININE 0.7 mg/dL (0.55-1.3)
[2022-01-12 13:08] LABS: BILIRUBIN,TOTAL 0.4 mg/dL (0.2-1); TOT PROT 6.8 g/dl (6.4-8.2)
[2022-01-12 13:52] LABS: HIV INTERPRETATION NEGATIVE (NEGATIVE)
[2022-01-12] MEDS: MELATONIN 5 MG TABLETS PO SCH (22:07)
[2022-01-12] MEDS: THIAMINE HCL 100 MG TABLET (FP) PO SCH (22:09)
[2022-01-13] MEDS: hydrOXYzine PAMOATE 25 MG CAPSULE (FP) PO SCH ×2 (05:00→10:56)
[2022-01-13] MEDS: diazePAM 5 MG TABLET PO PRN (05:00)
[2022-01-13 06:02] VITALS: BP 123/75; PULSE 78; RESP 18; TEMP 98.7
[2022-01-13] MEDS ORDERED: methaDONE HCL 10 MG TABLET (FOR DETOX USE ONLY) PO ONE (10:00)
[2022-01-13] MEDS: PRENATAL VITAMINS W/ FOLIC ACID TABLET (FP) PO SCH (10:56)
[2022-01-15] MEDS ORDERED: methaDONE HCL 10 MG TABLET (FOR DETOX USE ONLY) PO ONE (10:00)
== END 2022-01-13 08:40 | disposition left against medical advice (07) | DRG 770 ==
LOC: YASAS 12:56 → Y6N 17:30
PROVIDERS: ADMIT Allergy & Immunology; ATTEND Surgery
PROC: HZ2ZZZZ Detoxification Services for Substance Abuse Treatment (ICD-10-PCS; principal; 2022-01-11)
DX: F11.23 Opioid dependence with withdrawal (principal); F13.20 Sedative, hypnotic or anxiolytic dependence, uncomplicated; F12.20 Cannabis dependence, uncomplicated; F17.210 Nicotine dependence, cigarettes, uncomplicated; Z91.013 Allergy to seafood
CPT/HCPCS: 36415; 80053; 85027; 86780; 87389; C9803-CS; U0003; U0005